=== PATIENT | female | born 1985 | race Caucasian/White ===

== ENCOUNTER 2021-10-17 20:42 | Emergency (ER) | payer OTHER ==
[2021-10-17 21:21] LABS: HEMOGLOBIN 13.8 gm/dl (12.3-15.3); RED BLOOD COUNT 4.58 M/UL (4.00-5.10); WHITE BLOOD COUNT 15.1 K/UL (4.5-11.0)
[2021-10-17 21:46] LABS: BUN/CREATININE RATIO 8 (0-10)
== END 2021-10-18 00:15 | disposition left against medical advice (07) ==
LOC: ER1 20:42
PROVIDERS: Emergency Medicine
DX: R52 Pain, unspecified (principal)
CPT/HCPCS: 80053; 81001; 85025; 99281

== ENCOUNTER 2021-10-18 13:22 | Emergency (ER) | payer BC ==
[2021-10-18 16:31] LABS: HEMOGLOBIN 14.7 gm/dl (12.3-15.3); RED BLOOD COUNT 4.84 M/UL (4.00-5.10); WHITE BLOOD COUNT 14.4 K/UL (4.5-11.0)
[2021-10-18 17:00] LABS: BUN/CREATININE RATIO 6 (0-10)
== END 2021-10-18 18:39 | disposition home or self-care (01) ==
LOC: ER1 13:22
PROVIDERS: Physician Assistant
DX: N83.202 Unspecified ovarian cyst, left side (principal); F17.200 Nicotine dependence, unspecified, uncomplicated
CPT/HCPCS: 76830; 80053; 81001; 83690; 85025; 99284; Q9967